=== PATIENT | male | born 1980 | race Caucasian/White ===

== ENCOUNTER 2017-06-24 19:42 | Emergency (ER) | payer BC, OTHER ==
[~2017-06-24 19:42] MED LIST: Sodium Chloride 0.9% 1,000 ML BAG ONE
[2017-06-24] MEDS ORDERED: Morphine 10 MG/ML VIAL ONE ×2 (20:01→20:30)
[2017-06-24] MEDS ORDERED: Ondansetron HCl/PF 4 MG/2 ML Vial ONE (20:02)
[2017-06-24 20:14] LABS: #Basophils 0.1 thou/uL (0.0-0.2); #Eosinphils 0.1 thou/uL (0.0-0.7); #Lymphocytes 2.3 thou/uL (1.20-3.40); #Monocytes 0.7 thou/uL (0.11-0.59); #Neutrophils 5.3 thou/uL (1.40-6.50); %Basophils 0.8 % (0.0-1.0); %Eosinophils 1.2 % (0.0-10.0); %Lymphocytes 26.8 % (21.0-51.0); %Monocytes 8.8 % (0.0-10.0); %Neutrophils 62.4 % (42.0-75.0); Hemoglobin 16.2 g/dL (14.0-18.0); Mean Corpuscular HGB CONC 34.4 g/dL (32.0-36.0); Mean Corpuscular Hemoglobin 29.3 pg (27.0-31.0); Mean Corpuscular Volume 85.1 fl (80.0-94.0); Mean Platelet Volume 6.4 fL (7.4-10.4); Platelet Count 234 thou/uL (130-400); RBC Distribution Width 12.4 % (11.5-14.5); Red Blood Cell (RBC) Count 5.54 mill/uL (4.70-6.10); White Blood Cell (WBC) Count 8.4 thou/uL (4.8-10.8)
[2017-06-24 20:30] LABS: ALT (SGPT) 58 U/L (8-55); AST (SGOT) 22 U/L (5-34); Albumin 4.4 g/dL (3.5-5.0); Alkaline Phosphatase 72 U/L (40-150); Anion Gap 16 mmol/L (10-20); BUN (Urea Nitrogen) 16 mg/dL (8.9-20.6); Bilirubin, Total 0.6 mg/dL (0.2-1.2); Calc. Creatinine Clearance 0 mL/min (70-130); Calcium 9.5 mg/dL (7.8-10.44); Carbon Dioxide 23 mmol/L (22-29); Chloride 109 mmol/L (98-107); Estimated GFR-MDRD 63; Globulin 2.7 g/dL (2.4-3.5); Glucose 111 mg/dL (70-105); Potassium 4.1 mmol/L (3.5-5.1); Protein, Total 7.1 g/dL (6.0-8.3); Sodium 144 mmol/L (136-145)
--- NOTE | 2017-06-24 20:54 | CT ---
CT OF THE ABDOMEN AND PELVIS WITHOUT CONTRAST: 06/24/17 INDICATION: Left sided abdominal pain. FINDINGS: No renal or ureteral calculus is evident. No hydronephrosis is demonstrated. Small phleboliths seen w ithin the lower left hemipelvis. The appendix is not definitely seen. The gallbladder is surgically absent. There is fatty infiltratio n of the liver. Adrenal glands and pancreas appear within normal limits. No free fluid is evident. No acute osseous abnormality is evident. IMPRESSION: 1. No renal or ureteral calculus. 2. Fatty liver. 3. Cholecystectomy. POS: [facility]
[2017-06-24] MEDS ORDERED: Ketorolac Tromethamine 30 MG/ML VIAL ONE (21:02)
[2017-06-24 21:22] LABS: Bilirubin Negative (Negative); Blood, Urine Negative (Negative); Clarity Slightly Cloudy (Clear); Glucose, Urine (Dipstick) Negative (Negative); Leukocyte Negative (Negative); Nitrite Negative (Negative); Protein, Urine (Dipstick) Negative (Neg-Trace); Urobilinogen 0.2 mg/dL (0.2-1.0)
[2017-06-24] MEDS ORDERED: HYDROcodone/Acetaminophen 5/325 mg Tablet ONE (22:01)
== END 2017-06-24 22:21 | disposition home or self-care (01) ==
LOC: MADERS 19:42
DX: M54.5 Low back pain (principal); R10.30 Lower abdominal pain, unspecified; N45.1 Epididymitis; I10 Essential (primary) hypertension
CPT/HCPCS: 74176; 80053; 81003; 85025; 96361; 96374; 96375; J1885; J2270; J2405; J7050

== ENCOUNTER 2022-07-16 21:13 | Emergency (ER) | payer BC ==
[2022-07-16 22:03] LABS: #Basophils 0.1 thou/uL (0.0-0.2); #Eosinphils 0.2 thou/uL (0.0-0.7); #Lymphocytes 2.5 thou/uL (1.20-3.40); #Monocytes 0.9 thou/uL (0.11-0.59); #Neutrophils 7.8 thou/uL (1.40-6.50); %Basophils 0.9 % (0.0-1.0); %Eosinophils 1.4 % (0.0-10.0); %Lymphocytes 21.9 % (21.0-51.0); %Monocytes 7.7 % (0.0-10.0); %Neutrophils 68.1 % (42.0-75.0); Hemoglobin 16.5 g/dL (14.0-18.0); Mean Corpuscular HGB CONC 33.9 g/dL (32.0-36.0); Mean Corpuscular Volume 85.6 fl (78.0-98.0); Platelet Count 291 10x3/uL (130-400); RBC Distribution Width 12.1 % (11.5-14.5); White Blood Cell (WBC) Count 11.4 10x3/uL (4.8-10.8)
[2022-07-16] MEDS ORDERED: Ondansetron PF 4 MG/2 ML Vial ONE (22:18)
[2022-07-16 22:20] LABS: PTT 25.6 sec (22.9-36.1)
[2022-07-16 22:22] LABS: D-Dimer Test 0.27 *mcg/mL (0.27-0.43)
[2022-07-16 22:26] LABS: ALT (SGPT) 111 U/L (8-55); AST (SGOT) 43 U/L (5-34); Albumin 4.4 g/dL (3.5-5.0); Alkaline Phosphatase 92 U/L (40-110); Anion Gap 18 mmol/L (10-20); BUN (Urea Nitrogen) 15 mg/dL (8.9-20.6); Bilirubin, Total 1.1 mg/dL (0.2-1.2); Calc. Creatinine Clearance 0 mL/min (70-130); Calcium 9.3 mg/dL (7.8-10.44); Carbon Dioxide 19 mmol/L (22-29); Chloride 102 mmol/L (98-107); Estimated GFR 77; Globulin 2.4 g/dL (2.4-3.5); Glucose 130 mg/dL (70-105); Magnesium 1.9 mg/dL (1.6-2.6); Potassium 2.9 mmol/L (3.5-5.1); Protein, Total 6.8 g/dL (6.0-8.3); Sodium 136 mmol/L (136-145)
[2022-07-16 22:54] LABS: SARS-CoV-2 NAA Rapid Test Not Detected (NotDetected)
[2022-07-17] MEDS ORDERED: Diphenoxylate HCl/Atropine Tablet ONE (00:15)
[2022-07-17] MEDS ORDERED: Lactated Ringer's 1,000 ML ONE (00:15)
[2022-07-17 15:26] LABS: Campy jejuni + coli by PCR Negative (Negative); STEC Shiga Toxin 1+2 Negative (Negative); Salmonella spp. by PCR Negative (Negative); Shigella spp + EIEC by PCR Negative (Negative)
== END 2022-07-17 01:31 | disposition home or self-care (01) ==
LOC: MADERS 21:13
DX: R11.2 Nausea with vomiting, unspecified (principal); R19.7 Diarrhea, unspecified; E87.6 Hypokalemia; I10 Essential (primary) hypertension; Z20.822 Contact with and (suspected) exposure to COVID-19
CPT/HCPCS: 71045; 74177; 80053; 82274; 83605; 83630; 83735; 83880; 84443; 84484; 85025; 85379; 85610; 85730; 87505; 93005; 94760; 96374; 96375; J2405; J7120